=== PATIENT | female | born 1975 | race African-American/Black ===

== ENCOUNTER 2020-10-26 22:29 | Emergency (ER) | payer OTHER ==
[~2020-10-26] VITALS: Ht 160 cm; Wt 82.0 kg
[2020-10-26] MEDS ORDERED: FAMOTIDINE 20MG TABLET PO ONE (23:00)
[2020-10-27] MEDS ORDERED: FAMO-135 MT (00:03)
[2020-10-27 00:34] VITALS: BP 140/83
== END 2020-10-27 00:36 | disposition home or self-care (01) ==
LOC: ER 22:29
DX: R68.89 Other general symptoms and signs (principal)
CPT/HCPCS: 99282